=== PATIENT | female | born 1955 | race Caucasian/White ===

== ENCOUNTER 2016-06-18 15:49 | Emergency (ER) | payer OTHER ==
[~2016-06-18] VITALS: Wt 75.0 kg
[~2016-06-18 15:49] MED LIST: LEVO75TA5 PO; METO50TA16 PO; TEMA15CA PO; TOPI-25 PO; TOPI100T42 PO; VENL-42 PO; VENL150C PO; VENL150C94 PO; ZIPR80CA22 PO; ZIPR80CA9 PO
[2016-06-18 17:23] LABS: URINE BLOOD (Dip) POC Negative (NEGATIVE)
[2016-06-18] MEDS ORDERED: BACTDS PO (17:29)
[2016-06-18 17:34] VITALS: BP 146/71; PULSE 65
--- NOTE | 2016-06-18 18:05 | ERD ---
ER Documentation Chief Complaint Date/Time DATE: 06/18/16 TIME: 17:39 Chief Complaint States "uti" and finger wound HPI Patient is a 60 year old female who has a history of bipolar who presents to the ED with dysuria, urgency and frequency x 1 week. She denies fevers or chills. She denies abdominal pain, nausea, vomiting, diarrhea or pelvic pain. She denies chest pain, shortness of breath or cough. She denies headache, dizziness. She denies back pain. She also complains of a small finger wound on the third digit of her right finger. She states that she had a cut last week but feels that it is possibly infected. She denies drainage, bleeding or streaking. She denies trauma. She denies fever of chills. ROS All systems reviewed and are negative except as per history of present illness. Medications Home Meds Active Scripts Sulfamethoxazole-Trimethoprim* (Bactrim* DS) 800-160 Mg Tab, 1 TAB PO BID for 5 Days, TAB Prov:YONIS GIRARD PA-C 06/18/16 Topiramate* (Topamax*) 100 Mg Tablet, 100 MG PO BID, #60 TAB Prov:TREVER CARVAJAL MD 04/26/15 Ziprasidone* (Geodon*) 80 Mg Capsule, 80 MG PO DAILY, #30 CAP Prov:TREVER CARVAJAL MD 04/26/15 Metoprolol Succinate* (Toprol XL*) 50 Mg Tab.er.24h, 100 MG PO BID, #60 TAB Prov:TREVER CARVAJAL MD 04/26/15 Venlafaxine Hcl* (Effexor XR*) 150 Mg Cap.sr.24h, 187.5 MG PO DAILY, #30 CAP Prov:TREVER CARVAJAL MD 04/26/15 Reported Medications Ziprasidone* (Ziprasidone*) 80 Mg Capsule, 80 MG PO QPM, CAP 02/15/15 Topiramate* (Topiramate*) 100 Mg Tablet, 100 MG PO BID, TAB 02/15/15 Venlafaxine Hcl* (Venlafaxine Hcl ER*) 150 Mg Cap.er.24h, 150 MG PO QHS, CAP 02/15/15 Venlafaxine Hcl* (Venlafaxine Hcl ER*) 37.5 Mg Cap.er.24h, 37.5 MG PO QAM, CAP 02/15/15 Levothyroxine Sodium* (Levothyroxine Sodium*) 75 Mcg Tablet, 75 MCG PO AC BREAKFAST, TAB 02/15/15 Temazepam* (Temazepam*) 15 Mg Capsule, 15 MG PO HS Y for INSOMNIA, CAP 02/15/15 Allergies Allergies: Coded Allergies: Penicillins (Verified Allergy, Mild, 04/26/15) PMhx/Soc Medical and Surgical Hx: pt denies Medical Hx, pt denies Surgical Hx History of Surgery: No Anesthesia Reaction: No Hx Neurological Disorder: Yes (BIPOLAR) Hx Respiratory Disorders: No Hx Cardiac Disorders: No Hx Psychiatric Problems: Yes Hx Miscellaneous Medical Probl: No Hx Alcohol Use: No Hx Substance Use: No Hx Tobacco Use: No Physical Exam Vitals Vital Signs Date Time Temp Pulse Resp B/P Pulse Ox O2 Delivery O2 Flow Rate FiO2 06/18/16 17:34 65 146/71 06/18/16 15:50 97.3 73 20 181/79 100 Physical Exam GENERAL: Well-developed, well-nourished female. Appears in no acute distress. HEAD: Normocephalic, atraumatic. EYES: Pupils are equally reactive bilaterally. EOMs grossly intact. No conjunctival erythema. ENT: Moist mucous membranes. No uvula deviation. No kissing tonsils. No exudates. NECK: Supple. No lymphadenopathy or thyromegaly. No meningismus. negative kernig. negative brudinski. LUNG: Clear to auscultation bilaterally. No rhonchi, wheezing, rales or coarse breath sounds. HEART: Regular rate and rhythm. No murmurs, rubs or gallops. ABDOMEN: No scars, ecchymosis or rashes noted. Soft, nontender, and nondistended. Positive bowel sounds in all four quadrants. No rebound tenderness , no guarding. (-) McBurneys point tenderness. No CVA tenderness. BACK: No midline tenderness. Extremities: Equal pulses bilaterally. No peripheral clubbing, cyanosis or edema. No unilateral leg swelling. NEUROLOGIC: Alert and oriented. Moving all four extremities. 5/5 strength in all extremities. Normal speech. Steady gait. SKIN: Normal color. Warm and dry. No rashes or lesions. Capillary refill < 2 seconds Results 24 hrs Laboratory Tests Test 1/15/17 17:23 Bedside Urine Blood Negative Bedside Urine Glucose (UA) Negative Bedside Urine Ketones (LAB) Negative Bedside Urine Leukocyte Esterase (L Negative Bedside Urine Nitrite (LAB) Negative Bedside Urine Protein (LAB) Negative Bedside Urine pH (LAB) 7.0 Procedures/MDM ER COURSE: I kept the patient and/or family informed of laboratory and diagnostic imaging results throughout the emergency room course. UA showed no evidence of acute infection or hematuria. MEDICAL DECISION MAKING: This is a 60-year-old female who presents with dysuria, urgency and finger wound. Vital signs were reviewed. Patient is afebrile. Patient is not hypoxic. Patient is not toxic or ill-appearing. Patient's blood pressure at intake was 181/79 but after examination, blood pressure was 146/71. I have low suspicion for hypertensive urgency, emergency or endorgan damage. Patient does not have headache or dizziness or blurry vision. Low suspicion for intracranial hemorrhage, meningitis, intracranial mass, concussion, temporal arteritis, stroke, elevated intracranial pressure, seizure. I will be treating the patient with antiobiotics symptomatically. However her urine dip does not show signs of nitrates, leukocyte esterase or hematuria. Her finger wound does not signs of infection. Low suspicion for cellulitis, felon, fracture, osteomyelitis, paronychia, abscess. Low suspicion for necrotizing fasciitis, SJS, toxic epidermal necrolysis, Kawasaki, erythema multiforme, gangrene, scarlet fever, meningococcemia, sepsis, anaphylaxis DISCHARGE: At this time, patient is stable for discharge and outpatient management with no new complaints during the ER course. Patient was sent home with Bactrim. Patient will be discharged home with instructions to recheck for new or worsening symptoms such as fever, nausea, weakness, LOC and to follow up with primary care in the next 1-2 days. Patient was advised to return to the ER for any new or worsening symptoms. Plan was discussed and patient and/or family understands and agrees. Home instructions were given. Departure Diagnosis: Primary Impression: Dysuria Condition: Stable Patient Instructions: Dysuria Referrals: JORDIN KELLY (PCP) Additional Instructions: Call your primary care doctor TOMORROW for an appointment during the next 1-2 days.See the doctor sooner or return here if your condition worsens before your appointment time. YONIS GIRARD PA-C Jun 18, 2016 17:49
== END 2016-06-18 17:55 | disposition home or self-care (01) ==
LOC: FTE 15:49
DX: R30.0 Dysuria (principal)
CPT/HCPCS: 81003; 99283

== ENCOUNTER 2016-08-31 12:15 | Day surgery (SDC) | payer MEDICARE, MEDICAID ==
[~2016-08-31] VITALS: Ht 157.5 cm; Wt 73.6 kg
[~2016-08-31 12:15] MED LIST changes: +BACTDS PO
[2016-08-31 15:30] VITALS: Ht 157.5 cm; Wt 73.6 kg
[2016-08-31] MEDS ORDERED: VENL75TA2 PO (15:48)
[2016-08-31] MEDS ORDERED: VENL150C PO (15:48)
[2016-08-31] MEDS ORDERED: PROPOFOL 40 ML ONE (15:53)
[2016-08-31] MEDS ORDERED: LIDOCAINE 2% (SDV) 5 ML INJ ONE (15:53)
[2016-08-31 16:07] VITALS: BP 135/68; PULSE 62; RESP 18
[2016-08-31 17:00] VITALS: BP 148/83; RESP 20
--- NOTE | 2016-08-31 18:20 | GILP ---
DATE OF PROCEDURE: 08/31/2016 NAME OF PROCEDURE: Colonoscopy. SURGEON: Mane Montiel MD PREOPERATIVE DIAGNOSIS: Screening colonoscopy. POSTOPERATIVE DIAGNOSES: 1. Colonoscopy all the way to the cecum. 2. Poor prep making the exam very suboptimal. 3. Internal hemorrhoids. INDICATION FOR THE PROCEDURE: Ms. Demetrio Diaz is a 60-year-old female patient who was scheduled f or screening colonoscopy. The procedure and possible complications were well explained to the patient, she understood and cons ented to the procedure. DESCRIPTION OF PROCEDURE: Under the influence of anesthesia, the colonoscope was carefully introduc ed in the rectum and under direct vision, it was advanced all the way to the cecum. FINDINGS: The patient had poor prep making the exam very suboptimal. She was noted to have interna l hemorrhoids. She tolerated the procedure very well and there was no complication from the procedure. At the end of the procedure, she was awake with stable vital signs and she was discharged home to the care of h er family. IMPRESSION: 1. Colonoscopy all the way to the cecum. 2. Poor prep making the exam very suboptimal. 3. Internal hemorrhoids. PLAN: The patient will need repeat colonoscopy with better preparation in 1 to 2 years. Dictated By: MANE MACKEY/TABATHA Conf#: [id number] DID#: [id number] CC: MANE MONTIEL MD;*EndCC*
== END 2016-08-31 18:30 | disposition home or self-care (01) ==
LOC: GIL 12:15
PROVIDERS: ATTEND Internal Medicine Gastroenterology
DX: Z12.11 Encounter for screening for malignant neoplasm of colon (principal); K64.8 Other hemorrhoids; F31.9 Bipolar disorder, unspecified